=== PATIENT | male | born 1995 | race African-American/Black ===

== ENCOUNTER 2023-08-09 23:20 | Emergency (ER) | payer SELFPAY ==
[~2023-08-09] VITALS: Ht 170.2 cm; Wt 62.3 kg
[2023-08-10] MEDS ORDERED: SODIUM CHLORIDE 0.9% 1,000 ML IV ONE (00:30)
[2023-08-10] MEDS ORDERED: KETAMINE HCL 50 MG/ML 10ML IV ONE (00:30)
[2023-08-10] MEDS ORDERED: PROPOFOL 200MG/20ML VIAL IV ONE (00:30)
[2023-08-10] MEDS ORDERED: ONDANSETRON HCL 4MG/2ML INJ IV ONE (00:30)
[2023-08-10] MEDS ORDERED: MORPHINE SULFATE 4 MG/ML CPJ (NOT FOR IM USE) IV ONE (00:30)
[2023-08-10 00:51] VITALS: O2SAT 98
[2023-08-10] MEDS ORDERED: IBUP-2029 MT (02:47)
[2023-08-10 03:45] VITALS: BP 119/53; PULSE 73; RESP 12; TEMP 98.6
== END 2023-08-10 05:32 | disposition home or self-care (01) ==
LOC: ER 23:20
DX: S43.005A Unspecified dislocation of left shoulder joint, initial encounter (principal); J45.909 Unspecified asthma, uncomplicated; X58.XXXA Exposure to other specified factors, initial encounter; Y93.89 Activity, other specified; Y92.89 Other specified places as the place of occurrence of the external cause; Y99.8 Other external cause status
CPT/HCPCS: 99285; 73020; 73030; 23650; 96361; 96374; 99152; J3490; J2704; J2270; J7030; Z7610 ×2

== ENCOUNTER 2024-05-23 01:08 | Emergency (ER) | payer SELFPAY ==
[~2024-05-23] VITALS: Ht 170.2 cm; Wt 67.0 kg
[~2024-05-23 01:08] MED LIST: IBUP-2029 MT
[2024-05-23 01:17] VITALS: TEMP 97.9; O2SAT 98
[2024-05-23] MEDS ORDERED: CEFTRIAXONE SODIUM 500MG VIAL IM ONE (01:30)
[2024-05-23] MEDS ORDERED: LIDOCAINE HCL/PF 1% 10 MG/ML 5ML VIAL INFIL ONE (01:30)
[2024-05-23 02:14] LABS: CLARITY URINE CLOUDY (CLEAR); COLOR URINE YELLOW (YELLOW); GLUCOSE URINE NEGATIVE (NEGATIVE); KETONES URINE NEGATIVE (NEGATIVE); LEUKOCYTE ESTERASE URINE 3+ (NEGATIVE); NITRITE URINE NEGATIVE (NEGATIVE); OCCULT BLOOD URINE 1+ (NEGATIVE); PH URINE 6.5 (4.5-8.0); PROTEIN URINE NEGATIVE (NEGATIVE); SPECIFIC GRAVITY URINE 1.005 (1.005-1.030); UROBILINOGEN URINE 0.2 E.U./dL (0.2-1.0)
[2024-05-23 02:35] LABS: BACTERIA URINE NONE SEEN; RBC URINE NONE SEEN /hpf (0-2); SQUAMOUS EPITHELIAL CELL URINE RARE /lpf (RARE/1+)
[2024-05-23] MEDS ORDERED: DOXY100T2 MT (02:49)
[2024-05-23 03:06] VITALS: BP 101/64; PULSE 71; RESP 16
[2024-05-25 04:10] LABS: CHLAMYDIA TRACHOMATIS NAA Negative (Negative); NEISSERIA GONORRHOEAE NAA Positive (Negative)
== END 2024-05-23 03:03 | disposition home or self-care (01) ==
LOC: ER 01:26
DX: N45.2 Orchitis (principal); J45.909 Unspecified asthma, uncomplicated
CPT/HCPCS: 81003; 87491; 87591; 99283